=== PATIENT | male | born 1965 | race Caucasian/White ===

== ENCOUNTER → 2020-03-04 09:38 | Outpatient (CLI) | payer BC, SELFPAY ==
[2020-03-04 10:25] LABS: Basophils # 0.1 K/mm3 (0-0.2); Basophils % 0.7 % (0.1-2.0); Eosinophils # 0.2 K/mm3 (0.0-0.4); Eosinophils % 2.1 % (0.1-12.0); Hematocrit 52.2 % (42.0-52.0); Hemoglobin 17.3 g/dL (14.1-18.0); Lymphocytes # 2.4 K/mm3 (0.7-4.5); Lymphocytes % 27.3 % (10-50); Mean Corpuscular HGB Conc 33.1 g/dL (31.8-35.4); Mean Corpuscular Hemoglobin 30.9 pg (27.0-31.2); Mean Corpuscular Volume 93.5 fl (80-94); Mean Platelet Volume 8.1 fl (7.4-10.4); Monocytes # 0.5 K/mm3 (0.1-1.0); Monocytes % 5.1 % (1.7-9.3); Neutrophils # 5.7 K/mm3 (1.8-7.8); Neutrophils % 64.9 % (37.0-80.0); Platelet Count 247 K/mm3 (142-424); Red Blood Count 5.59 M/mm3 (4.60-6.20); Red Cell Distribution Width 13.8 % (11.5-17.5); White Blood Count 8.8 K/mm3 (4.8-10.8)
[2020-03-04 11:45] LABS: Alanine Aminotransferase 23 U/L (12-78); Albumin Level 4.4 g/dl (3.5-5.0); Albumin/Globulin Ratio 1.7 (1.1-1.8); Alkaline Phosphatase 102 U/L (38-126); Anion Gap 14.5 mEq/L (5-15); Aspartate Amino Transferase 23 U/L (17-59); Bilirubin,Total 0.5 mg/dl (0.2-1.3); Blood Urea Nitrogen 14 mg/dl (9-20); Calcium 9.6 mg/dl (8.4-10.2); Carbon Dioxide 25 mmol/L (22.0-30.0); Chloride 105 mmol/L (98-107); Chol/HDL Ratio 4.5 (1-3.5); Cholesterol 213 mg/dl (140-200); Estimated Glomerular Filt Rate 118 ml/min (>60); GFR (African American) 143 ML/MIN (>60); Globulin 2.6 g/dL (1.3-3.2); Glucose 97 mg/dl (74-100); HDL Cholesterol 47 mg/dl (40-60); Potassium 4.5 mmoL/L (3.5-5.1); Sodium 140 mmol/L (136-145); Triglycerides 91 mg/dl (30-150); VLDL Cholesterol 18 mg/dL (0-40)
[2020-03-04 12:01] LABS: 25-OH Vitamin D, Total 21.7 ng/mL (30-100)
[2020-03-04 12:16] LABS: Thyroid Stimulating Hormone 0.96 uIU/mL (0.465-4.68)
[2020-03-04 12:34] LABS: Vitamin B12 302 pg/mL (239-931)
== END ==
PROVIDERS: Visit Provider Internal Medicine Adolescent Medicine
DX: E78.01 Familial hypercholesterolemia (principal); R53.83 Other fatigue; R53.81 Other malaise
CPT/HCPCS: 36415; 80053; 80061; 82306; 82607; 84443; 85025

== ENCOUNTER → 2021-03-07 11:17 | Outpatient (CLI) | payer BC, SELFPAY | PROVIDERS: PCP Internal Medicine Adolescent Medicine; Visit Provider Nurse Practitioner | DX: U07.1 COVID-19 (principal) | CPT/HCPCS: C9803; U0003; U0005 ==